=== PATIENT | female | born 1950 ===

== ENCOUNTER → 2018-10-22 | Outpatient (CLI) | payer OTHER ==
[~2018-10-22] MED LIST: ALEVE220 MG PO; AMARYL; AMBIEN10 MG PO; BENADRYL ITCH28.3 G1 TP; BENADRYL50 MG PO; BIOTIN500 MCG PO; BUPROBAN150 MG PO; CALAN SR 120MG120 MG PO; CLARITIN10 MG PO; COZAAR25 MG PO; ECZEMA ANTI-I28.3 GM TP; ESTRADIOL; HYZAAR 50-12.1 UDTAB PO; LASIX80 MG; MEDROL8 MG PO; MVI- INFUVITE A10 ML IV; OSEL75CA PO; POLY119PG PO; PROVENTIL3 ML/2.5 M IH; SURFAK240 M1 PO; TENEX2 MG PO; TUSSIONEX PENNKI5 ML PO; ULTRACET PO; VERAPAMIL HCL40 MG PO
== END | disposition home or self-care (01) ==
LOC: NUCLEAR 12:42
DX: I27.82 Chronic pulmonary embolism (principal); I26.90 Septic pulmonary embolism without acute cor pulmonale
CPT/HCPCS: 78580; A9540

== ENCOUNTER 2019-01-30 08:49 | Inpatient (IN) | payer OTHER ==
[~2019-01-30] VITALS: Ht 162.6 cm; Wt 86.2 kg
[2019-01-30] MEDS ORDERED: TAMOXIFEN CITRA20 MG (09:10)
[2019-01-30] MEDS ORDERED: AVAPRO300 MG (09:11)
[2019-01-30] MEDS ORDERED: FORTAMET1000 MG (09:11)
[2019-01-30] MEDS ORDERED: GLIMEPIRIDE4 MG (09:11)
[2019-01-30] MEDS ORDERED: LEXAPRO20 MG (09:12)
[2019-01-30] MEDS ORDERED: MYSOLINE50 MG (09:12)
[2019-02-01] MEDS ORDERED: POLY119PG PO (14:49)
== END 2019-02-01 15:00 | disposition home or self-care (01) | DRG 390 ==
LOC: ER 08:49 → EDBD 08:55 → SURH 21:46
PROVIDERS: ADMIT Surgery
PROC: BW21ZZZ Computerized Tomography (CT Scan) of Abdomen and Pelvis (ICD-10-PCS; principal; 2019-01-30)
DX: K56.690 Other partial intestinal obstruction (principal); I10 Essential (primary) hypertension; E11.9 Type 2 diabetes mellitus without complications

== ENCOUNTER 2019-03-03 14:20 | Emergency (ER) | payer OTHER ==
[~2019-03-03] VITALS: Ht 165.1 cm; Wt 86.2 kg
[~2019-03-03 14:20] MED LIST changes: +AVAPRO300 MG; +FORTAMET1000 MG; +GLIMEPIRIDE4 MG; +LEXAPRO20 MG; +MYSOLINE50 MG; +TAMOXIFEN CITRA20 MG
== END 2019-03-03 18:25 | disposition home or self-care (01) ==
LOC: ER 14:20
DX: S00.83XA Contusion of other part of head, initial encounter (principal); S20.212A Contusion of left front wall of thorax, initial encounter; W18.09XA Striking against other object with subsequent fall, initial encounter; Y93.89 Activity, other specified; Y92.89 Other specified places as the place of occurrence of the external cause; Y99.8 Other external cause status

== ENCOUNTER 2019-03-31 15:15 | Emergency (ER) | payer OTHER ==
[~2019-03-31] VITALS: Ht 165.1 cm; Wt 86.2 kg
[2019-03-31] MEDS ORDERED: LYRICA50 MG (15:50)
== END 2019-03-31 19:53 | disposition home or self-care (01) ==
LOC: ER 15:15
DX: S00.03XA Contusion of scalp, initial encounter (principal); S19.89XA Other specified injuries of other specified part of neck, initial encounter; S29.8XXA Other specified injuries of thorax, initial encounter; W18.09XA Striking against other object with subsequent fall, initial encounter; Y93.89 Activity, other specified; Y92.018 Other place in single-family (private) house as the place of occurrence of the external cause; Y99.8 Other external cause status

== ENCOUNTER 2020-09-12 16:53 | Emergency (ER) | payer OTHER ==
[~2020-09-12] VITALS: Ht 157.5 cm; Wt 76.2 kg
[~2020-09-12 16:53] MED LIST changes: +LYRICA50 MG
[2020-09-12] MEDS ORDERED: SKELAXIN800 MG PO (20:36)
[2020-09-12] MEDS ORDERED: ACETAMINOPHEN650 M2 PO (20:38)
== END 2020-09-12 20:42 | disposition home or self-care (01) ==
LOC: ER 16:53
DX: S50.01XA Contusion of right elbow, initial encounter (principal); S80.02XA Contusion of left knee, initial encounter; M54.2 Cervicalgia; W18.09XA Striking against other object with subsequent fall, initial encounter; Y93.89 Activity, other specified; Y92.018 Other place in single-family (private) house as the place of occurrence of the external cause; Y99.8 Other external cause status

== ENCOUNTER → 2020-11-27 | Emergency (ER) | payer OTHER ==
[~2020-11-27] VITALS: Ht 165.1 cm; Wt 81.6 kg
[~2020-11-27] MED LIST changes: +ACETAMINOPHEN650 M2 PO; +AMOX-CLAV 875-1 EAC1 PO; +DIOVAN160 M1 PO; +EZALLOR SPRINKL10 MG PO; +FORTAMET1000 MG PO; +INTESTINEX680 M1 PO; +LEVSIN/SL0.125 MG PO; +MYSOLINE250 MG PO; +PEPCID AC20 MG PO; +SKELAXIN800 MG PO; +TOPROL XL50 M1 PO
== END | disposition home or self-care (01) ==
LOC: ER 15:43
DX: K52.89 Other specified noninfective gastroenteritis and colitis (principal); R10.13 Epigastric pain; R10.33 Periumbilical pain

== ENCOUNTER 2021-02-10 09:26 | Emergency (ER) | payer OTHER ==
[~2021-02-10] VITALS: Ht 165.1 cm; Wt 83.9 kg
== END 2021-02-10 16:30 | disposition home or self-care (01) ==
LOC: ER 09:26
DX: K52.89 Other specified noninfective gastroenteritis and colitis (principal); R10.31 Right lower quadrant pain

== ENCOUNTER 2021-02-11 12:21 | Inpatient (IN) | payer OTHER ==
[~2021-02-11] VITALS: Ht 165.1 cm; Wt 83.9 kg
[2021-02-17] MEDS ORDERED: CARAFATE1 GM PO (16:10)
[2021-02-17] MEDS ORDERED: PROTONIX40 MG PO (16:10)
== END 2021-02-17 17:03 | disposition home or self-care (01) | DRG 388 ==
LOC: ER 12:21 → SURG 02-12 08:47
PROVIDERS: ADMIT Surgery; ATTEND Surgery
PROC: 02HV33Z Insertion of Infusion Device into Superior Vena Cava, Percutaneous Approach (ICD-10-PCS; 2021-02-12)
PROC: 4A12X4Z Monitoring of Cardiac Electrical Activity, External Approach (ICD-10-PCS; 2021-02-13)
PROC: 0W3P8ZZ Control Bleeding in Gastrointestinal Tract, Via Natural or Artificial Opening Endoscopic (ICD-10-PCS; principal; 2021-02-14)
DX: K56.600 Partial intestinal obstruction, unspecified as to cause (principal); K25.4 Chronic or unspecified gastric ulcer with hemorrhage; E11.9 Type 2 diabetes mellitus without complications; I10 Essential (primary) hypertension; Z20.822 Contact with and (suspected) exposure to COVID-19; I48.0 Paroxysmal atrial fibrillation

== ENCOUNTER 2022-12-31 11:18 | Emergency (ER) | payer OTHER ==
[~2022-12-31] VITALS: Ht 165.1 cm; Wt 83.9 kg
[~2022-12-31 11:18] MED LIST changes: +CARAFATE1 GM PO; +PROTONIX40 MG PO
[2022-12-31] MEDS ORDERED: XOPENEX0.63 MG/3 IH (15:46)
[2022-12-31] MEDS ORDERED: ZITHROMAX500 MG PO (15:46)
[2022-12-31] MEDS ORDERED: BENZONATATE200 M1 PO (15:46)
== END 2022-12-31 16:00 | disposition home or self-care (01) ==
LOC: ER 11:18
DX: R05.9 Cough, unspecified (principal); R06.02 Shortness of breath; Z20.822 Contact with and (suspected) exposure to COVID-19